=== PATIENT | male | born 1975 | race Caucasian/White ===

== ENCOUNTER 2017-02-09 12:07 | Emergency (ER) | payer BC | END 2017-02-09 15:10 | disposition home or self-care (01) | LOC: ER 12:07 | DX: R07.89 Other chest pain (principal); E87.6 Hypokalemia; R53.81 Other malaise; R55 Syncope and collapse; R11.0 Nausea; I45.10 Unspecified right bundle-branch block; Z87.442 Personal history of urinary calculi | CPT/HCPCS: 36415; 96361; 96374 ==